=== PATIENT | female | born 1995 | race Caucasian/White ===

== ENCOUNTER 2022-05-07 14:32 | Emergency (ER) | payer BC, OTHER ==
[2022-05-07] MEDS ORDERED: Sodium Chloride 0.9% 1,000 ML IV STA (14:52)
[2022-05-07] MEDS ORDERED: Ondansetron 4 MG/2 ML SDV IVPUSH ONE (14:52)
[2022-05-07] MEDS ORDERED: Sodium Chloride 0.9% 10 ML Syringe FLUSH PRN (14:52)
[2022-05-07] MEDS ORDERED: HYDROmorphone 0.5 MG/0.5 ML Syringe IVPUSH ONE (14:53)
[2022-05-07 16:18] LABS: CORONAVIRUS COVID-19 NAA NEGATIVE (NEGATIVE)
[2022-05-07] MEDS ORDERED: Ketorolac 30 MG/ML SDV IVPUSH ONE (16:18)
== END 2022-05-07 17:35 | disposition home or self-care (01) ==
LOC: JD.ED 14:32
DX: K52.9 Noninfective gastroenteritis and colitis, unspecified (principal); Z20.822 Contact with and (suspected) exposure to COVID-19
CPT/HCPCS: 0241U; 36415; 80053; 81001; 83690; 84703; 85025; 86140; 96361; 96374; 96375; 99284; J1170; J1885; J2405; J3490; J7030; 99283